=== PATIENT | male | born 1990 | race Two or more races ===

== ENCOUNTER 2021-03-27 15:24 | Emergency (ER) | payer MEDICAID ==
[~2021-03-27] VITALS: Ht 177.8 cm; Wt 95.5 kg
[2021-03-27 15:40] VITALS: BP 161/96
== END 2021-03-27 16:04 | disposition home or self-care (01) ==
LOC: EMS 15:26
DX: G47.9 Sleep disorder, unspecified (principal)
CPT/HCPCS: 99283; Z7502